=== PATIENT | female | born 1990 ===

== ENCOUNTER 2017-08-26 08:57 | Emergency (ER) | payer MEDICAID ==
[2017-08-26 09:03] VITALS: O2SAT 98
[2017-08-26] MEDS ORDERED: Sodium Chloride 0.9% 1,000 ML IV ONE (09:29)
[2017-08-26] MEDS ORDERED: Sodium Chloride 0.9% 1,000 ML ONE (09:48)
--- NOTE | 2017-08-26 10:03 | C.PDOC ---
26 years old female presents to ED with complaints of epigastric abdominal pain associated with nausea, 4 episodes of vomiting, and 2 loose bowel movements that began last night. Denies urinary symptoms or fever. Patient states pain began 1 hour after eating empanadas. Patient has history of gastritis and states she used to take omeprazole for it but no longer does. Patient reports that she did not take any medications for symptoms. (She Green) History Per: Patient History/Exam Limitations: no limitations Onset/Duration Of Symptoms: Days (1) Current Symptoms Are (Timing): Still Present Location Of Pain/Discomfort: Epigastric Radiation Of Pain To:: None Quality Of Discomfort: "Pain" Associated Symptoms: Nausea, Vomiting (4 episodes), Diarrhea (2 episodes). denies: Fever, Chills, Urinary Symptoms Exacerbating Factors: None Alleviating Factors: None Last Bowel Movement: Today Recent travel outside of the [place]: No Abnormal Vaginal Bleeding: No <She Green - Last Filed: 08/26/17 17:03> <Mike Stone - Last Filed: 08/28/17 14:37> Time Seen by Provider: 08/26/17 09:20 Chief Complaint (Nursing): Abdominal Pain Past Medical History Reviewed: Historical Data, Nursing Documentation, Vital Signs - Medical History PMH: No Chronic Diseases Surgical History: No Surg Hx Family History: States: No Known Family Hx - Social History Hx Alcohol Use: No Hx Substance Use: No <She Green - Last Filed: 08/26/17 17:03> Vital Signs: Last Vital Signs Temp 98.7 F 08/26/17 12:51 Pulse 101 H 08/26/17 12:51 Resp 18 08/26/17 12:51 BP 102/66 08/26/17 12:51 Pulse Ox 98 08/26/17 17:04 Review Of Systems Constitutional: Negative for: Fever, Chills Gastrointestinal: Positive for: Nausea, Vomiting (4 episodes ), Abdominal Pain ( Epigastric ), Diarrhea (2 episodes ) Skin: Negative for: Rash Neurological: Negative for: Weakness, Numbness <She Green - Last Filed: 08/26/17 17:03> Physical Exam - Physical Exam Appears: Well, Non-toxic, No Acute Distress Skin: Warm, Dry Head: Atraumatic, Normacephalic Eye(s): bilateral: Normal Inspection, PERRL, EOMI Oral Mucosa: Moist Neck: Normal ROM, Supple Chest: Symmetrical, No Tenderness Cardiovascular: Rhythm Regular, No Murmur Respiratory: Normal Breath Sounds, No Decreased Breath Sounds, No Rales, No Rhonchi, No Wheezing Gastrointestinal/Abdominal: Bowel Sounds (Active), Soft, Tenderness ( Generalized ), No Guarding, No Rebound Extremity: Normal ROM Extremity: Bilateral: Atraumatic, Normal Color And Temperature, Normal ROM Neurological/Psych: Oriented x3, Normal Speech Gait: Steady <PeterShe L - Last Filed: 08/26/17 17:03> ED Course And Treatment - Laboratory Results Result Diagrams: 08/26/17 10:20 08/26/17 10:20 O2 Sat by Pulse Oximetry: 98 (RA) Pulse Ox Interpretation: Normal - CT Scan/US Abdomen US Other Rad Studies (CT/US): Read By Radiologist, Radiology Report Reviewed CT/US Interpretation: Abdominal ultrasound. History: Epigastric and right upper quadrant abdominal pain. Comparison: None available. Technique: Real- time sonography was performed through the abdomen. Findings: Liver: 15.2 centimeters in length. Increased echogenicity of the hepatic parenchymal cortex suggestive for fatty infiltration versus hepatic parenchymal disease. Clinical correlation. Gallbladder: No calculi or sludge. Normal wall thickness of 1.9 millimeters. Negative sonographic Newman's sign. Common bile duct measures 2.5 millimeters, within normal limits. Limited visualization of the pancreas. Spleen measures 9.2 centimeters in length, within normal limits. Visualized aorta and IVC are preserved. Right kidney: 11.1 x 5.5 x 5.5 centimeters. No calculi or hydronephrosis. Left Kidney: 10.7 x 5.8 x 4.7 centimeters. No calculi or hydronephrosis. Impression: Increased echogenicity of the hepatic parenchymal cortex suggestive for fatty infiltration versus hepatic parenchymal disease. Clinical correlation. Limited visualization of the pancreas. <She Green Last Filed: 08/26/17 17:03> - Laboratory Results Result Diagrams: 08/26/17 10:20 08/26/17 10:20 <Mike Stone - Last Filed: 08/28/17 14:37> Medical Decision Making: Impression: abdominal pain and vomiting Plan: * Labs * Urine analysis * IV NS, Reglan, Pepcid Progress: Labs reviewed showing no acute findings. No leukocytosis or electrolyte abnormality. Urine clear and negative Ultrasound unremarkable Patient remained afebrile alert and oriented with stable vital signs during ER evaluation. Discussed results with patient, and copy of report was provided. On re-examination, patient is resting comfortably in no acute distress. Patient reports improvement of symptoms. Patient feels comfortable going home and will be discharged. Patient given follow up instructions. Instructed to return to ER if symptoms worsen or new symptoms arise. (She Green) Disposition Counseled Patient/Family Regarding: Diagnosis, Need For Followup, Rx Given - Disposition Disposition Time: 12:51 - POA Present On Arrival: None <She Green - Last Filed: 08/26/17 17:03> <Mike Stone - Last Filed: 08/28/17 14:37> - Disposition Referrals: Gemma Paige FNP [Advanced Practice Nurse] - Disposition: HOME/ ROUTINE Condition: STABLE Additional Instructions: Follow up with your primary medical doctor or clinic in 2-5 days for further evaluation. Take medications as prescribed. Return to the emergency department at any time if symptoms persist or worsen. Prescriptions: Famotidine [Pepcid] 20 mg PO DAILY #20 tab Instructions: Acute Abdomen (Belly Pain), Adult (DC) Forms: [facility] (Chinese) - Clinical Impression Clinical Impression: Abdominal pain - PA / CABLE BRAIDER / Resident Statement MD/DO has reviewed & agrees with the documentation as recorded. - Scribe Statement The provider has reviewed the documentation as recorded by the Scribe <She Green - Last Filed: 08/26/17 17:03> <Mike Stone - Last Filed: 08/28/17 14:37> - Scribe Statement Marti Enrique All medical record entries made by the [facility] were at my direction and personally dictated by me. I have reviewed the chart and agree that the record accurately reflects my personal performance of the history, physical exam, medical decision making, and the department course for this patient. I have also personally directed, reviewed, and agree with the discharge instructions and disposition. (She Green)
[2017-08-26 10:29] LABS: BASO % 0.2 % (0.0-2.0); EOS % 0.2 % (0.0-4.0); HEMOGLOBIN 12.6 g/dL (11.0-16.0); LYMPH # 1.2 K/uL (1.0-4.3); LYMPH % 7.7 % (20.0-40.0); MEAN CELL VOLUME 81.3 fL (81.0-99.0); MEAN CORPUSCULAR HEMOGLOBIN 27.1 pg (27.0-31.0); MEAN CORPUSCULAR HGB CONC 33.4 g/dL (33.0-37.0); MEAN PLATELET VOLUME 9.2 fL (7.2-11.7); MONO # 0.5 K/uL (0.0-0.8); MONO % 3.4 % (0.0-10.0); NEUT # 13.6 K/uL (1.8-7.0); NEUT % 88.5 % (50.0-75.0); PLATELET COUNT 314 K/uL (130-400); RBC 4.64 Mil/uL (3.80-5.20); RED CELL DISTRIBUTION WIDTH 14.1 % (11.5-14.5); WHITE BLOOD COUNT 15.4 K/uL (4.8-10.8)
[2017-08-26 10:42] LABS: HCG,QUALITATIVE URINE NEGATIVE (NEGATIVE)
[2017-08-26 10:43] LABS: SQUAMOUS EPITHIAL < 1 /hpf (0-5); URINE BILIRUBIN NEGATIVE (NEGATIVE); URINE BLOOD NEGATIVE (NEGATIVE); URINE CLARITY Clear (Clear); URINE COLOR Yellow (YELLOW); URINE GLUCOSE (UA) NORMAL (Normal); URINE LEUKOCYTE ESTERASE NEG Leu/uL (Negative); URINE PROTEIN NEGATIVE (NEGATIVE); URINE UROBILINOGEN NORMAL mg/dL (0.2-1.0)
[2017-08-26 10:47] LABS: ALB/GLOB RATIO 1.2 (1.0-2.1); ALBUMIN 4.3 g/dL (3.5-5.0); ALT/SGPT 38 U/L (9-52); AST/SGOT 38 U/L (14-36); BLOOD UREA NITROGEN 13 mg/dL (7-17); CALCIUM 9.2 mg/dl (8.6-10.4); GFR AFRICAN-AMERICAN > 60; GFR NON-AFRICAN AMERICAN > 60; LIPASE 52 U/L (23-300)
[2017-08-26 10:56] LABS: LYMPHOCYTE 10 % (20-40); MONOCYTE 1 % (0-10); NEUTROPHIL 89 % (50-75); TOTAL CELLS COUNTED 100
[2017-08-26 10:57] LABS: PLATELET ESTIMATE NORMAL (NORMAL)
--- NOTE | 2017-08-26 12:39 | US ---
Abdominal ultrasound History: Epigastric and right upper quadrant abdominal pain. Comparison: None available. Technique: Real-time sonography was performed through the abdomen. Findings: Liver: 15.2 centimeters in length. Increased echogenicity of the hepatic parenchymal cortex suggestive for fatty infiltration versus hepatic parenchymal disease. Clinical correlation. Gallbladder: No calculi or sludge. Normal wall thickness of 1.9 millimeters. Negative sonographic Newman's sign. Common bile duct measures 2.5 millimeters, within normal limits. Limited visualization of the pancreas. Spleen measures 9.2 centimeters in length, within normal limits. Visualized aorta and IVC are preserved. Right kidney: 11.1 x 5.5 x 5.5 centimeters. No calculi or hydronephrosis. Left Kidney: 10.7 x 5.8 x 4.7 centimeters. No calculi or hydronephrosis. Impression: Increased echogenicity of the hepatic parenchymal cortex suggestive for fatty infiltration versus hepatic parenchymal disease. Clinical correlation. Limited visualization of the pancreas.
[2017-08-26 12:52] VITALS: BP 102/66; PULSE 101; RESP 18; TEMP 98.7
== END 2017-08-26 13:00 | disposition home or self-care (01) ==
LOC: C.ER 08:57
DX: R10.13 Epigastric pain (principal)
CPT/HCPCS: 76700; 80053; 81001; 83690; 84703; 85025; 96361; 96372; 96374; 96375; 99284; J1885; J2765; J7030